=== PATIENT | female | born 1990 | race Caucasian/White ===

== ENCOUNTER 2022-11-09 15:57 | Emergency (ER) | payer BC, SELFPAY ==
--- NOTE | 2022-11-09 16:02 | ED.NAVMDI ---
HPI - Nausea/Vomiting/Diarrhea General Chief complaint: Nausea/Vomiting/Diarrhea Stated complaint: Vomiting Time Seen by Provider: 11/09/22 16:02 Source: patient and RN notes reviewed History of Present Illness HPI Narrative: Patient is a 32-year-old female who presents to urgent care with complaints of vomiting, diarrhea. Patient states the vomiting started Monday after going to the show and eating popcorn for dinner. Patient states she thought it was after taking her medications on an empty stomach. Patient states she vomited again yesterday while attempting to eat. Patient has not attempted to eat since then and has had approximately 8 or 9 stools today. Patient denies any abdominal pain or fever. No other acute complaints. No acute distress noted. Patient aware of the plan of care. Some parts of this dictation were generated by voice recognition software and may contain typographical and/or grammatical inaccuracies. Related Data Allergies Allergy/AdvReac Type Severity Reaction Status Date / Time methylprednisolone Allergy Severe Swelling Verified 11/09/22 16:30 of Lip/Tongue/Throat Sulfa (Sulfonamide Allergy Mild Swelling Verified 11/09/22 16:30 Antibiotics) Review of Systems Review of Systems: CONSTITUTIONAL: Denies fever, chills, or sweats. EYES: Denies visual changes, redness, or discharge. ENT: Denies rhinorrhea, congestion, sore throat, or otalgia. CARDIOVASCULAR: Denies chest pain, palpitations, or edema. RESPIRATORY: Denies cough or dyspnea. GASTROINTESTINAL: Reports of diarrhea and vomiting GENITOURINARY: Denies dysuria or hematuria. SKIN: Denies rash or itching. MUSCULOSKELETAL: Denies back pain, joint pain, or myalgia. NEUROLOGIC: Denies headache, numbness, or weakness. All other systems reviewed are negative, except as documented in HPI. PMFSH Comments At the time of my signature, I reviewed and agree with the nursing past medical, surgical, social, and family history. There is no relevant family history pertinent to the patient complaint. Exam Narrative: GENERAL: This is a well-nourished, well-developed patient, in no apparent distress. HEAD: normocephalic, atraumatic. EYES: PERRL. Sclera clear/white. Vision is grossly intact. EARS: External ears normal NOSE: External nose normal with no obvious nasal discharge, nares without redness, no rhinorrhea. THROAT: Mucous membranes moist NECK: Neck supple, GASTROINTESTINAL: Abdomen soft, non-tender, nondistended. Bowel sounds are hypoactive. SKIN: warm, intact with no suspicious lesions or rash, good texture and turgor. NEURO: awake, alert, and oriented to person, place and time. There were no obvious focal neurologic abnormalities. EXTREMITIES: No clubbing, cyanosis, or edema. Course Course Level of Care: Express Care Visit Vital Signs Vital signs: Vital Signs Temperature 98.7 F 11/09/22 16:04 Pulse Rate 104 H 11/09/22 16:04 Respiratory Rate 20 11/09/22 16:04 Blood Pressure 139/99 H 11/09/22 16:04 Pulse Oximetry 99 11/09/22 16:04 Oxygen Delivery Room Air 11/09/22 16:04 Temperature 98.7 F 11/09/22 16:04 Pulse Rate 104 H 11/09/22 16:04 Respiratory Rate 20 11/09/22 16:04 Blood Pressure 139/99 H 11/09/22 16:04 Pulse Oximetry 99 11/09/22 16:04 Oxygen Delivery Room Air 11/09/22 16:04 reviewed- Patient is informed that they may have pre-hypertension or hypertension based on a blood pressure reading in the department. I recommend the patient call the primary care provider listed on their discharge instructions or a physician of their choice this week to arrange follow-up for further evaluation of possible pre-hypertension or hypertension. MDM - Nausea/Vomiting/Diarrhea MDM Narrative Medical decision making narrative: advised patient to use the Zofran as needed for nausea. Would recommend Pepto-Bismol to help soothe the stomach. Eat a bland diet for the next 2 days. Avoid any greasy, fried
[2022-11-09 16:04] VITALS: BP 139/99; PULSE 104; RESP 20; TEMP 37.1; O2SAT 99
== END 2022-11-09 16:32 | disposition home or self-care (01) ==
PROVIDERS: Emergency Provider Nurse Practitioner Family; PCP Family Medicine
DX: K52.9 Noninfective gastroenteritis and colitis, unspecified (principal); L40.50 Arthropathic psoriasis, unspecified
CPT/HCPCS: 99213; G0463

== ENCOUNTER 2022-12-26 09:51 | Emergency (ER) | payer BC, SELFPAY ==
[2022-12-26 09:58] VITALS: BP 140/82; PULSE 100; RESP 18; TEMP 36.7; O2SAT 100
--- NOTE | 2022-12-26 11:06 | ED.URI ---
HPI - URI/Sore Throat General Chief Complaint: Upper Respiratory Infection Stated Complaint: Ear Pain/Chest Congestion Time Seen by Provider: 12/26/22 11:06 Source: patient, RN notes reviewed and old records reviewed Mode of arrival: ambulatory Limitations: no limitations History of Present Illness HPI Narrative: 32 year old female who presents to [facility] care with complaints of sinus congestion yesterday with cough with left ear pain today with some ringing and complaints of dizziness and light sensitivity. Patient reports that she has taken ibuprofen and also some DayQuil for her symptoms. Patient reports no known fevers, chills or body aches. MD elicited complaint: cough and other (ear pain left ear) Pertinent past history: immunosuppression Onset (ago): day(s) (day 2 on symptoms) Pain scale (0-10): 4 Treatments prior to arrival: ibuprofen and other (DayQuil) Related Data Home Medications Medication Instructions Recorded Confirmed cetirizine 10 mg tablet (Zyrtec) 10 mg PO DAILY 11/09/22 11/09/22 diphenhydramine HCl 50 mg capsule 50 mg PO HS 11/09/22 11/09/22 ibuprofen 800 mg tablet 800 mg PO TID 11/09/22 11/09/22 levonorgestrel 21 mcg/24 hours (8 1 device intrauterine ONCE 11/09/22 11/09/22 yrs) 52 mg intrauterine device (Mirena) meloxicam 7.5 mg tablet 7.5 mg PO DAILY 11/09/22 11/09/22 methotrexate sodium 2.5 mg tablet 5 mg PO WEEKLY 11/09/22 11/09/22 tramadol 50 mg tablet 50 mg PO DAILY 11/09/22 11/09/22 Allergies Allergy/AdvReac Type Severity Reaction Status Date / Time methylprednisolone Allergy Severe Swelling Verified 11/09/22 16:30 of Lip/Tongue/Throat omalizumab [From Xolair] Allergy Mild Rash Verified 11/09/22 16:32 Sulfa (Sulfonamide Allergy Mild Swelling Verified 11/09/22 16:30 Antibiotics) Review of Systems Review of Systems: CONSTITUTIONAL: Denies malaise, chills, sweats, or fever. EYES: Denies visual changes, redness, or discharge.reports some light sensitivity ENT: Reports rhinorrhea, congestion, sinus pain,left otalgia. no sore throat. CARDIOVASCULAR: Denies chest pain, palpitations, or edema. RESPIRATORY: Reports cough.? Denies dyspnea. GASTROINTESTINAL: Denies abdominal pain, nausea, vomiting, diarrhea SKIN: Denies rash or itching. MUSCULOSKELETAL: Denies myalgia. NEUROLOGIC: Reports headache.also some dizziness All systems reviewed & are unremarkable except as noted in HPI and below PMFSH Past Medical History Medical History (Updated 12/27/22 @ 13:28 by Briana Herrera NP) Chronic idiopathic urticaria Psoriatic arthritis Social History Social History (Updated 12/27/22 @ 13:25 by Briana Herrera NP) Gender identity (if verbalized by the patient): Female Comments At time of signature, agree with nursing past medical, surgical, social and family history. There is no relevant family history pertinent to the presenting complaint Exam Narrative: GENERAL: Well-appearing, well-nourished, and in no acute distress. HEAD: Normocephalic EYES: PERRLA, conjunctivae clear ENT: Nares clear, turbinates edematous and erythematous, clear discharge. Mucous membranes moist. Left TM red and bulging, Right TM pearly bush with dull light reflex ; no tragal tenderness. Oropharynx erythematous without lesions. Tonsils not enlarged and without exudate, no drooling, no hoarseness, no trismus, uvula midline. NECK: Supple. No lymphadenopathy CHEST: Clear to auscultation, breath sounds equal. No wheezing, rhonchi, rales, or stridor. No respiratory distress, speaks in full sentences. HEART: Regular rate and rhythm. No murmur heard. SKIN: Warm, dry, no rash. NEURO: Alert and oriented x3. PSYCH: Normal mood and affect Course Course Emergency Course: Patient is aware of diagnosis, understands and agrees to treatment plan.? Anticipatory guidance given.? Patient agrees to follow-up as directed and is aware of reasons to seek care at the emergency departmen
== END 2022-12-26 11:27 | disposition home or self-care (01) ==
PROVIDERS: Emergency Provider Registered Nurse; PCP Family Medicine
DX: H66.92 Otitis media, unspecified, left ear (principal); J06.9 Acute upper respiratory infection, unspecified; L40.50 Arthropathic psoriasis, unspecified
CPT/HCPCS: 99213; G0463

== ENCOUNTER 2023-12-05 08:45 | Emergency (ER) | payer BC, SELFPAY ==
--- NOTE | ~2023-12-05 | XR_ITS ---
EXAMINATION: XR foot LT min 3V DATE: 12/05/2023 09:24 INDICATION: Lateral left foot pain after being stepped on by a cow. TECHNIQUE: Dorsoplantar, two oblique and lateral views of the left foot were obtained. COMPARISON: None. FINDINGS: Bone alignment is normal. No fracture. Joint spaces appear normal throughout. Small Achilles and plan tar calcaneal spurs. Soft tissues are unremarkable with no ankle joint effusion. IMPRESSION: 1. No acute osseous abnormality. Reviewed, dictated and finalized at location A[facility] [employer]
[2023-12-05 08:48] VITALS: BP 143/73; PULSE 100; RESP 20; TEMP 36.4; O2SAT 100
--- NOTE | 2023-12-05 09:32 | ED.LOWEXIN ---
HPI - Extremity Injury (Lower) General Chief Complaint: Extremity Injury, Lower Stated Complaint: left foot injury Time Seen by Provider: 12/05/23 09:22 Source: patient, RN notes reviewed and old records reviewed Mode of arrival: ambulatory Limitations: no limitations History of Present Illness HPI Narrative: 33-year-old female who presents to [facility] with complaints of injury to her left foot after being stepped on by a cow yesterday.Patient reports that she was feeding cow and cow stepped onto her left foot with continued pain and swelling of left lateral foot. 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 complaint: foot injury (Left) Onset (ago): day(s) (Day 2 of symptoms) Injury: Left: foot (Lateral left foot) Type of Injury: blunt Place: home Severity scale (1-10): 2 Treatments prior to arrival: cold therapy, NSAIDS and other (on daily diclofenac) Related Data Home Medications Medication Instructions Recorded Confirmed ibuprofen 800 mg tablet 800 mg PO TID 11/09/22 12/05/23 levonorgestrel 21 mcg/24 hours (8 1 device intrauterine ONCE 11/09/22 12/05/23 yrs) 52 mg intrauterine device (Mirena) tramadol 50 mg tablet 50 mg PO QID 11/09/22 12/05/23 Allergies Allergy/AdvReac Type Severity Reaction Status Date / Time methylprednisolone Allergy Severe Swelling Verified 12/05/23 09:14 of Lip/Tongue/Throat omalizumab [From Xolair] Allergy Mild Rash Verified 12/05/23 09:14 Sulfa (Sulfonamide Allergy Mild Swelling Verified 12/05/23 09:14 Antibiotics) Review of Systems Review of Systems: CONSTITUTIONAL: Denies fever, chills, or sweats. CARDIOVASCULAR: Denies chest pain, palpitations, or edema. RESPIRATORY: Denies cough or dyspnea. SKIN: Denies rash or itching. Denies laceration or abrasions MUSCULOSKELETAL: Reports injury to left foot when stepped on by cow yesterday NEUROLOGIC: Denies numbness, or weakness. All systems reviewed & are unremarkable except as noted in HPI and below PMFSH Past Medical History Medical History (Updated 12/06/23 @ 08:34 by Briana Herrera NP) Chronic idiopathic urticaria Encounter for insertion of venous access port Fracture of left foot Psoriatic arthritis Surgical History Surgical History (Updated 12/06/23 @ 08:27 by Briana Herrera NP) H/O arthroscopy of right knee Social History Social History (Updated 12/06/23 @ 08:32 by Briana Herrera NP) Smoking status: Current every day smoker Tobacco type: cigarettes Alcohol intake: current Alcohol use details: social Substance use type: does not use Living arrangements: with family Gender identity (if verbalized by the patient): Female Comments At time of signature, agree with nursing past medical, surgical, social and family history. There is no relevant family history pertinent to the presenting complaint Exam Narrative: GENERAL: Well-appearing, well-nourished, and in no acute distress. HEAD: Normocephalic, atraumatic. EYES: PERRLA, conjunctivae clear NECK: Supple. CHEST: Speaks in full sentences. No respiratory distress.SAO2 100% on room air HEART: Regular rate and rhythm. Normal and equal peripheral pulses. EXTREMITIES: Left foot has normal strength and sensation, normal range of motion.mild left lateral foot edema no ecchymosis. 5/5 strength with full flexion and extension. Normal sensation with sensitivity to light touch and pain. Lateral left foot point tenderness.? ?No open wounds, no skin tenting, no devitalized tissue or atrophy, no trophic changes, no obvious deformity, alignment normal, nearby joints and structures intact. Distal pulses palpable and equal bilaterally, skin warm, dry, pink. Capillary refill less than 3 seconds. Course Cours
== END 2023-12-05 09:52 | disposition home or self-care (01) ==
PROVIDERS: Emergency Provider Registered Nurse; PCP Family Medicine
DX: S90.32XA Contusion of left foot, initial encounter (principal); W55.22XA Struck by cow, initial encounter; F17.210 Nicotine dependence, cigarettes, uncomplicated; L40.50 Arthropathic psoriasis, unspecified
CPT/HCPCS: 73630; 99213; G0463